=== PATIENT | female | born 1945 | race Caucasian/White ===

== ENCOUNTER 2016-05-30 15:00 | Emergency (ER) | payer OTHER, MEDICARE ==
--- NOTE | 2016-05-30 15:08 | PDOC ---
History of Present Illness - General History Source: Patient Exam Limitations: No Limitations <Richa Rojas - Last Filed: 05/30/16 15:15> - General History Source: Patient Exam Limitations: No Limitations - History of Present Illness Initial Comments: 05/30/16 15:23 The patient is a 71 year old female, with no significant past medical history, who presents to the emergency department with a right thumb laceration that occurred today when she was making coleslaw. She notes that she it was bleeding for an hour before it stopped bleeding. There is currently no active bleeding. The patient denies any other kind of injuries. Allergies: None Past surgical history: None reported Social history: No alcohol, tobacco or drug use reported <Dale Bob - Last Filed: 05/30/16 15:28> - General Chief Complaint: Laceration Stated Complaint: RIGHT THUMB LACERATION Time Seen by Provider: 05/30/16 15:06 Past History <Richa Rojas - Last Filed: 05/30/16 15:15> <Dale Bob - Last Filed: 05/30/16 15:28> - Past Medical History Allergies/Adverse Reactions: Allergies Allergy/AdvReac Type Severity Reaction Status Date / Time No Known Allergies Allergy Verified 05/30/16 15:03 Home Medications: Ambulatory Orders Levothyroxine [Synthroid -] 50 mcg PO DAILY 05/30/16 NK [No Known Home Medication] 05/30/16 Rosuvastatin [Crestor -] 20 mg PO HS 05/30/16 Review of Systems - Review of Systems Able to Perform ROS?: Yes Comments:: 05/30/16 15:24 GENERAL/CONSTITUTIONAL: No fever or chills. No weakness. SKIN: No rash EXTREMITIES: +Right thumb laceration. NEUROLOGIC: No headache, vertigo, loss of consciousness, or change in strength/ sensation. HEMATOLOGIC/LYMPHATIC: No anemia, easy bleeding, or history of blood clots. ALLERGIC/IMMUNOLOGIC: No hives or skin allergy. <Dale Bob - Last Filed: 05/30/16 15:28> *Physical Exam - Vital Signs Last Vital Signs Temp Pulse Resp BP Pulse Ox 98.1 F 78 18 132/77 98 05/30/16 15:00 05/30/16 15:00 05/30/16 15:00 05/30/16 15:00 05/30/16 15:00 - Physical Exam Comments: 05/30/16 15:24 GENERAL: Awake, alert, and fully oriented, in no acute distress EXTREMITIES: +Avulsion tissue on radial side of right thumb, no bleeding or drainage, capillary refill less than 2 seconds, hand warm 2+ radial 2+ ulnar. Normal inspection, Normal range of motion, no edema. No clubbing or cyanosis. NEUROLOGICAL: Cranial nerves II through XII grossly intact. Normal speech, normal gait, no focal sensorimotor deficits SKIN: Warm, Dry, normal turgor, no rashes or lesions noted. <Dale Bob - Last Filed: 05/30/16 15:28> Medical Decision Making - Medical Decision Making 05/30/16 15:07 A portion of this note was documented by scribe services under my direction. I have reviewed the details of the note, within reason, and agree with the documentation with the following case summary and management plan written by me. Nursing documentation reviewed and incorporated into medical decision making 05/30/16 15:15 This is a 71 yo Right hand dominant F presenting to the ER s/p injury to the right thumb by a mandoline She was making cold slaw and cut the radial side of her thumb Pt held pressure for approximately 1 hour No trauma to any other location On examination, there is an area that measures approximately 8mm in diameter No bleeding noted R/M/U motor and sensation in tact Wound dressed Pt given boostrix Will discharge to home Monitor for surrounding erythema Local wound care 05/30/16 15:18 <Richa Rojas - Last Filed: 05/30/16 15:15> *DC/Admit/Observation/Transfer - Discharge Dispostion Admit: No <Richa Rojas - Last Filed: 05/30/16 15:15> - Attestations Scribe Attestion: 05/30/16 15:25 Documentation prepared by Dale Bob, acting as medical management trainer for Richa Rojas MD <Dale Bob - Last Filed: 05/30/16 15:28> Diagnosis at time of Disposition: Laceration of thumb Qualifiers: Encounter type: initial encounter Laterality: right Qualified Code(s): S61.011A - Laceration without foreign body of right thumb without damage to nail , initial encounter - Discharge Dispostion Disposition: HOME Condition at time of disposition: Stable - Patient Instructions Printed Discharge Instructions: DI for Avulsion Laceration (Not Requiring Sutures) Additional Instructions: Macie Thank you for coming in to the ER today Please apply antibiotic ointment to your laceration Please keep it covered Do not get it soaking wet Your skin will heal over time Return to the ER for any other concerns or complaints
[2016-05-30] MEDS ORDERED: DIPHTH,PERTUSS(ACELL),TET 0.5 ML DISP.SYRIN IM ONE (15:18)
[2016-05-30 15:25] VITALS: BP 156/76; PULSE 63; TEMP 98.1; BMI 30.9
== END 2016-05-30 15:30 | disposition home or self-care (01) ==
LOC: FER 15:00
PROC: 3E0234Z Introduction of Serum, Toxoid and Vaccine into Muscle, Percutaneous Approach (ICD-10-PCS; principal; 2016-05-30)
DX: S61.011A Laceration without foreign body of right thumb without damage to nail, initial encounter (principal); W26.0XXA Contact with knife, initial encounter; Y93.G3 Activity, cooking and baking; Y92.000 Kitchen of unspecified non-institutional (private) residence as the place of occurrence of the external cause
CPT/HCPCS: 90715; 99284-25